=== PATIENT | female | born 1985 | race Asian ===

== ENCOUNTER 2023-02-22 14:25 | Observation (INO) | payer OTHER, SELFPAY ==
[~2023-02-22] VITALS: Ht 157.5 cm; Wt 76.2 kg
[2023-02-22 15:00] VITALS: BP 108/71; PULSE 100; RESP 18; TEMP 98.4; O2SAT 98
[2023-02-22] MEDS ORDERED: INSULIN (15:56)
[2023-02-22] MEDS ORDERED: PNV1TABL38 PO (15:56)
== END 2023-02-22 16:00 | disposition home or self-care (01) ==
LOC: MLD 14:25
PROVIDERS: ADMIT Obstetrics & Gynecology; ATTEND Obstetrics & Gynecology
DX: O46.93 Antepartum hemorrhage, unspecified, third trimester (principal); O24.419 Gestational diabetes mellitus in pregnancy, unspecified control; Z3A.28 28 weeks gestation of pregnancy
CPT/HCPCS: G0378